=== PATIENT | male | born 1970 | race Caucasian/White ===

== ENCOUNTER 2018-04-03 21:22 | Emergency (ER) | payer OTHER ==
[~2018-04-03] VITALS: Ht 182.9 cm; Wt 80.8 kg
[2018-04-03 21:42] VITALS: BP 132/82
--- NOTE | 2018-04-04 00:03 | NUR ---
pt c/o right ring finger pain, redness and swelling hands jannet, c/o discharge from penis and burning on urination
[2018-04-04] MEDS ORDERED: CEPH-571 PO (00:09)
[2018-04-04] MEDS ORDERED: NAPR-56 PO (00:09)
[2018-04-04] MEDS ORDERED: DOXY100C43 PO (00:09)
[2018-04-04] MEDS ORDERED: CefTRIAXone 250MG IM Kit w/LIDOcaine IM ONE (00:10)
[2018-04-04 01:33] LABS: CLARITY,URINE SLIGHTLY CLOUDY (Clear); COLOR,URINE YELLOW (Yellow); GLUCOSE, URINE NEGATIVE (Neg); KETONES,URINE TRACE mg/dl (Neg); LEUKOCYTE ESTERASE ,URINE SMALL (Neg); NITRITES, URINE NEGATIVE (Neg); OCCULT BLOOD,URINE NEGATIVE (Neg); PROTEIN,URINE NEGATIVE (Neg)
[2018-04-04 01:36] LABS: UA COLLECTION TYPE CLN CATCH MIDSTREAM
[2018-04-04 01:46] LABS: BACTERIA,URINE FEW /HPF (Neg); SQUAMOUS EPITHELIAL CELL,UR FEW /LPF (FEW); WBC,URINE 50-100 /HPF (0-4)
[2018-04-04 01:47] LABS: RBC,URINE 0-2 /HPF (0-2)
== END 2018-04-04 00:43 | disposition home or self-care (01) ==
LOC: ER 21:23
DX: L03.113 Cellulitis of right upper limb (principal); L03.114 Cellulitis of left upper limb; R30.0 Dysuria; Z20.2 Contact with and (suspected) exposure to infections with a predominantly sexual mode of transmission; R36.9 Urethral discharge, unspecified; Z79.899 Other long term (current) drug therapy
CPT/HCPCS: 36415; 81001; 87088; 87491; 87591; 96372; 99283; J0696; 96361

== ENCOUNTER 2024-10-06 08:14 | Emergency (ER) | payer MEDICAID ==
[~2024-10-06] VITALS: Ht 182.9 cm; Wt 91.0 kg
[~2024-10-06 08:14] MED LIST: CEPH-571 PO
[2024-10-06 08:18] VITALS: TEMP 98.2
[2024-10-06] MEDS: LIDOcaine 1% W/epiNEPHrine 1:100,000 20ml vial IJ ONE (08:43)
[2024-10-06] MEDS: TETanus/Pertussis (Acell)/Diphther VAC/PF (Tdap-Adult) 0.5ml syringe IMVAC ONE (08:43)
[2024-10-06 10:10] VITALS: BP 135/95; PULSE 81; RESP 17; O2SAT 94
[2024-10-06] MEDS ORDERED: SULF1TAB49 PO (11:01)
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
== END 2024-10-06 11:27 | disposition home or self-care (01) ==
LOC: ER 08:14
DX: S91.312A Laceration without foreign body, left foot, initial encounter (principal); Z79.899 Other long term (current) drug therapy; W22.8XXA Striking against or struck by other objects, initial encounter; Y93.89 Activity, other specified; Y92.89 Other specified places as the place of occurrence of the external cause; Y99.8 Other external cause status
CPT/HCPCS: 12002; 90471; 90715; 99284; J3490; A6258